=== PATIENT | female | born 1965 | race Caucasian/White ===

== ENCOUNTER 2020-04-06 09:04 | Emergency (ER) | payer MEDICAID, SELFPAY ==
[~2020-04-06] VITALS: Ht 160 cm; Wt 64.4 kg
[2020-04-06 09:06] VITALS: Ht 160 cm; Wt 64.4 kg
[2020-04-06 12:00] VITALS: BP 124/75
== END 2020-04-06 12:00 | disposition home or self-care (01) ==
LOC: ED 09:04
DX: U07.1 COVID-19 (principal)
CPT/HCPCS: U0003

== ENCOUNTER 2020-04-14 14:34 | Emergency (ER) | payer MEDICAID, SELFPAY ==
[~2020-04-14] VITALS: Ht 160 cm; Wt 63.5 kg
[2020-04-14 15:42] VITALS: Ht 160 cm; Wt 63.5 kg
[2020-04-14 16:13] VITALS: BP 114/82
== END 2020-04-14 16:14 | disposition home or self-care (01) ==
LOC: ED 14:34
DX: U07.1 COVID-19 (principal)
CPT/HCPCS: U0003